=== PATIENT | male | born 1970 | race Caucasian/White ===

== ENCOUNTER → 2016-06-15 | Outpatient (CLI) | payer BC ==
--- NOTE | 2016-06-15 16:32 | DIAGNOSTIC IMAGING REPORT ---
LEFT SHOULDER MIN 2 VIEWS CLINICAL HISTORY: LEFT SHOULDER PAIN COMPARISON: None. DISCUSSION: 3 views reveal no fractures or dislocations. There are no visible periarticular calcifications. No destructive lesions are evident. IMPRESSION: Unremarkable conventional radiographic evaluation of the left shoulder Electronically signed by: Dani Butcher M.D. 06/15/2016 4:30 PM Dictated Date/Time: 06/15/2016 4:30 PM
== END | disposition home or self-care (01) ==
LOC: C.RDSM 14:46
PROVIDERS: ATTEND Internal Medicine
DX: M25.512 Pain in left shoulder (principal)

== ENCOUNTER → 2016-09-15 | Outpatient (CLI) | payer BC ==
--- NOTE | 2016-09-15 16:45 | DIAGNOSTIC IMAGING REPORT ---
CHEST 2 VIEWS ROUTINE CLINICAL HISTORY: CHEST PAIN, ACUTE POST-THORACOTOMY PAIN COMPARISON STUDY: 10/29/2015 FINDINGS: The cardiac and mediastinal contours are normal. There is no evidence of focal pulmonary consolidation. There is no evidence of failure. No pleural effusions are visualized.[ IMPRESSION: No active disease in the chest. Electronically signed by: Dani Butcher M.D. 09/15/2016 4:43 PM Dictated Date/Time: 09/15/2016 4:43 PM
== END | disposition home or self-care (01) ==
LOC: C.RAD1850 16:30
PROVIDERS: ATTEND Nurse Practitioner Family
DX: R07.9 Chest pain, unspecified (principal); G89.12 Acute post-thoracotomy pain; J44.9 Chronic obstructive pulmonary disease, unspecified; R10.13 Epigastric pain